=== PATIENT | female | born 1975 | race Two or more races ===

== ENCOUNTER → 2016-08-24 | Outpatient (CLI) | payer OTHER ==
[2016-08-24 10:54] LABS: BASOPHIL % 0.4 % (0-2); PLATELET COUNT 209 x10^3mcL (130-400); RED CELL DISTRIBUTION WIDTH 14.2 % (11.5-14.5)
[2016-08-24 10:56] LABS: rbc morphology (normal/abnorm) ABNORMAL (NORMAL)
[2016-08-24 11:10] LABS: ALBUMIN 3.8 g/dL (3.4-5.0); ALKALINE PHOSPHATASE 87 U/L (46-116); ALT/SGPT 32 U/L (14-59); AST/SGOT 22 U/L (15-37); BILIRUBIN TOTAL 0.66 mg/dL (0.20-1.00); CALCIUM 8.7 mg/dL (8.5-10.1); CARBON DIOXIDE 30.7 mmol/L (21-32); CHLORIDE SERUM 104 mmol/L (98-107); CHOLESTEROL 150 mg/dL (<200); CHOLESTEROL/HDL RATIO 3.8; CREATININE SERUM 0.7 mg/dL (0.6-1.0); FREE T4 1.21 ng/dL (0.76-1.46); GFR1 > 60 mL/min; GLUCOSE SERUM 92 mg/dL (74-106); HDL CHOLESTEROL 39 mg/dL (40-60); POTASSIUM SERUM 3.8 mmol/L (3.5-5.1); SODIUM SERUM 140 mmol/L (136-145); T4(THYROXINE) 12.1 ug/dL (4.7-13.3)
[2016-08-24 11:11] LABS: TRIGLYCERIDES 269 mg/dL (<150)
[2016-08-24 11:21] LABS: T3 TOTAL 1.55 ng/mL
== END | disposition home or self-care (01) ==
LOC: LB 10:16
PROVIDERS: Family Medicine
DX: Z13.0 Encounter for screening for diseases of the blood and blood-forming organs and certain disorders involving the immune mechanism (principal); Z13.29 Encounter for screening for other suspected endocrine disorder; Z13.228 Encounter for screening for other metabolic disorders
CPT/HCPCS: 84439

== ENCOUNTER 2018-04-20 18:06 | Emergency (ER) | payer OTHER ==
[~2018-04-20] VITALS: Ht 152.4 cm; Wt 69.9 kg
[2018-04-20 18:33] VITALS: Ht 152.4 cm; Wt 69.9 kg
[2018-04-20 19:44] VITALS: BP 141/94
== END 2018-04-20 19:44 | disposition home or self-care (01) ==
LOC: ED 18:06
DX: J40 Bronchitis, not specified as acute or chronic (principal); I10 Essential (primary) hypertension

== ENCOUNTER 2018-10-16 22:22 | Emergency (ER) | payer OTHER ==
[~2018-10-16] VITALS: Ht 152.4 cm; Wt 72.1 kg
[2018-10-16 22:34] VITALS: Ht 152.4 cm; Wt 72.1 kg
[2018-10-17 01:05] LABS: BASOPHIL % 0.5 % (0-2); PLATELET COUNT 218 x10^3mcL (130-400); RED CELL DISTRIBUTION WIDTH 12.8 % (11.5-14.5)
[2018-10-17 01:17] LABS: CALCIUM 9.2 mg/dL (8.5-10.1); CHLORIDE SERUM 105 mmol/L (98-107); CREATININE SERUM 0.8 mg/dL (0.6-1.0); GFR1 > 60 mL/min; GLUCOSE SERUM 94 mg/dL (74-106); POTASSIUM SERUM 4.4 mmol/L (3.5-5.1); SODIUM SERUM 142 mmol/L (136-145)
[2018-10-17 01:22] LABS: ALBUMIN 3.6 g/dL (3.4-5.0); ALKALINE PHOSPHATASE 55 U/L (46-116); ALT/SGPT 32 U/L (14-59); AST/SGOT 13 U/L (15-37); BILIRUBIN TOTAL 0.4 mg/dL (0.20-1.00); LIPASE 332 IU/L (73-393); TOTAL PROTEIN, SERUM 6.9 g/dL (6.4-8.2)
[2018-10-17 02:03] VITALS: BP 125/77
== END 2018-10-17 02:03 | disposition home or self-care (01) ==
LOC: ED 22:22
PROVIDERS: Emergency Medicine
DX: R07.89 Other chest pain (principal); I10 Essential (primary) hypertension; Z98.890 Other specified postprocedural states
CPT/HCPCS: 36415; Q0092

== ENCOUNTER → 2019-05-15 | Outpatient (CLI) | payer OTHER ==
[2019-05-15 10:13] LABS: UA SPECIFIC GRAVITY 1.025 (1.005-1.035); microscopic required? YES; urine erythrocyte 1+ (NEGATIVE)
[2019-05-15 10:19] LABS: BASOPHIL % 0.4 % (0-2); PLATELET COUNT 214 x10^3mcL (130-400); RED CELL DISTRIBUTION WIDTH 13.7 % (11.5-14.5)
[2019-05-15 11:09] LABS: ALBUMIN 3.6 g/dL (3.4-5.0); ALKALINE PHOSPHATASE 70 U/L (46-116); ALT/SGPT 27 U/L (14-59); AST/SGOT 10 U/L (15-37); BILIRUBIN TOTAL 0.4 mg/dL (0.20-1.00); CARBON DIOXIDE 30.8 mmol/L (21-32); CHLORIDE SERUM 103 mmol/L (98-107); CHOLESTEROL 165 mg/dL (<200); CREATININE SERUM 0.7 mg/dL (0.6-1.0); GFR1 > 60 mL/min; GLUCOSE SERUM 103 mg/dL (74-106); POTASSIUM SERUM 3.9 mmol/L (3.5-5.1); SODIUM SERUM 138 mmol/L (136-145); TOTAL PROTEIN, SERUM 7.8 g/dL (6.4-8.2)
[2019-05-15 11:11] LABS: CHOLESTEROL/HDL RATIO 4.9; HDL CHOLESTEROL 34 mg/dL (40-60); TRIGLYCERIDES 301 mg/dL (<150)
== END | disposition home or self-care (01) ==
LOC: LB 09:30
DX: Z00.00 Encounter for general adult medical examination without abnormal findings (principal); E66.9 Obesity, unspecified; I10 Essential (primary) hypertension

== ENCOUNTER → 2019-06-18 | Outpatient (CLI) | payer OTHER | END | disposition home or self-care (01) | LOC: US 08:50 | PROC: BU4CZZZ Ultrasonography of Uterus and Ovaries (ICD-10-PCS; principal; 2019-06-18) | DX: R10.2 Pelvic and perineal pain (principal) ==

== ENCOUNTER → 2020-03-10 | Outpatient (CLI) | payer OTHER ==
[2020-03-10 08:57] LABS: ALBUMIN 3.7 g/dL (3.4-5.0); ALKALINE PHOSPHATASE 51 U/L (46-116); ALT/SGPT 25 U/L (14-59); AST/SGOT 14 U/L (15-37); BILIRUBIN TOTAL 0.3 mg/dL (0.20-1.00); CALCIUM 8.7 mg/dL (8.5-10.1); CARBON DIOXIDE 28.6 mmol/L (21-32); CHLORIDE SERUM 105 mmol/L (98-107); CHOLESTEROL 157 mg/dL (<200); CHOLESTEROL/HDL RATIO 3.9; CREATININE SERUM 0.8 mg/dL (0.6-1.0); GFR1 > 60 mL/min; GLUCOSE SERUM 125 mg/dL (74-106); HDL CHOLESTEROL 40 mg/dL (40-60); POTASSIUM SERUM 4.1 mmol/L (3.5-5.1); SODIUM SERUM 139 mmol/L (136-145); TOTAL PROTEIN, SERUM 7.5 g/dL (6.4-8.2); TRIGLYCERIDES 122 mg/dL (<150)
== END | disposition home or self-care (01) ==
LOC: LB 07:59
PROVIDERS: ATTEND Student in an Organized Health Care Education/Training Program
DX: I10 Essential (primary) hypertension (principal); E78.5 Hyperlipidemia, unspecified

== ENCOUNTER 2020-03-24 12:17 | Emergency (ER) | payer OTHER ==
[~2020-03-24] VITALS: Ht 152.4 cm; Wt 77.1 kg
[2020-03-24 12:54] VITALS: Ht 152.4 cm; Wt 77.1 kg
[2020-03-24 14:22] LABS: microscopic required? NO
[2020-03-24 14:23] LABS: BASOPHIL % 0.4 % (0-2); PLATELET COUNT 235 x10^3mcL (130-400)
[2020-03-24 14:35] LABS: CALCIUM 9.5 mg/dL (8.5-10.1); CARBON DIOXIDE 24.3 mmol/L (21-32); CHLORIDE SERUM 104 mmol/L (98-107); CREATININE SERUM 0.8 mg/dL (0.6-1.0); GFR1 > 60 mL/min; GLUCOSE SERUM 106 mg/dL (74-106); POTASSIUM SERUM 3.7 mmol/L (3.5-5.1); SODIUM SERUM 140 mmol/L (136-145)
[2020-03-24 14:37] LABS: ALKALINE PHOSPHATASE 62 U/L (46-116); ALT/SGPT 26 U/L (14-59); AST/SGOT 17 U/L (15-37); BILIRUBIN TOTAL 0.32 mg/dL (0.20-1.00); TOTAL PROTEIN, SERUM 8.2 g/dL (6.4-8.2)
[2020-03-24 14:39] LABS: urine erythrocyte NEGATIVE (NEGATIVE)
[2020-03-24 18:48] VITALS: BP 112/76
== END 2020-03-24 18:48 | disposition home or self-care (01) ==
LOC: ED 12:17
PROVIDERS: Emergency Medicine
DX: R51.9 Headache, unspecified (principal); R68.84 Jaw pain; I10 Essential (primary) hypertension; Z98.890 Other specified postprocedural states

== ENCOUNTER → 2020-06-23 | Outpatient (CLI) | payer OTHER | END | disposition home or self-care (01) | LOC: MA 09:00 | PROC: BH02ZZZ Plain Radiography of Bilateral Breasts (ICD-10-PCS; principal; 2020-06-23) | DX: C50.911 Malignant neoplasm of unspecified site of right female breast (principal); N64.4 Mastodynia; M54.5 Low back pain; M79.10 Myalgia, unspecified site; Z12.31 Encounter for screening mammogram for malignant neoplasm of breast | CPT/HCPCS: 77067 ==